=== PATIENT | female | born 1935 | race Two or more races ===

== ENCOUNTER 2021-02-23 11:07 | Emergency (ER) | payer OTHER ==
[~2021-02-23] VITALS: Ht 165.1 cm; Wt 75.3 kg
[2021-02-23] MEDS ORDERED: ALDACTONE25 MG (11:48)
[2021-02-23] MEDS ORDERED: ZYLOPRIM100 M1 (11:48)
[2021-02-23] MEDS ORDERED: CHILDREN'S ASPI81 MG (11:49)
[2021-02-23] MEDS ORDERED: ZESTRIL40 M1 (11:49)
[2021-02-23] MEDS ORDERED: AZOR 10-20 MG1 EACH (11:49)
[2021-02-23] MEDS ORDERED: ATORVASTATIN CA40 MG (11:50)
[2021-02-23] MEDS ORDERED: CILOSTAZOL100 MG (11:50)
[2021-02-23] MEDS ORDERED: CHLORTHALIDONE25 MG (11:50)
[2021-02-23] MEDS ORDERED: CALTRATE 600+D1 EACH (11:51)
[2021-02-23] MEDS ORDERED: RELAFEN DS1000 MG (11:51)
[2021-02-23] MEDS ORDERED: NEURONTIN300 MG (11:51)
[2021-02-23] MEDS ORDERED: ORPHENADRINE C100 MG PO (15:58)
[2021-02-23] MEDS ORDERED: DICLOFENAC POTA50 MG PO (15:58)
[2021-02-23] MEDS ORDERED: CYCLOBENZAPRINE10 MG PO (15:58)
== END 2021-02-23 16:15 | disposition home or self-care (01) ==
LOC: ER 11:07
DX: S00.83XA Contusion of other part of head, initial encounter (principal); S40.022A Contusion of left upper arm, initial encounter; S60.212A Contusion of left wrist, initial encounter; W18.39XA Other fall on same level, initial encounter; Y93.89 Activity, other specified; Y92.098 Other place in other non-institutional residence as the place of occurrence of the external cause; Y99.8 Other external cause status

== ENCOUNTER 2021-08-11 10:35 | Outpatient (CLI) | payer OTHER ==
[~2021-08-11 10:35] MED LIST: ALDACTONE25 MG; ATORVASTATIN CA40 MG; AZOR 10-20 MG1 EACH; CALTRATE 600+D1 EACH; CHILDREN'S ASPI81 MG; CHLORTHALIDONE25 MG; CILOSTAZOL100 MG; CYCLOBENZAPRINE10 MG PO; DICLOFENAC POTA50 MG PO; NEURONTIN300 MG; ORPHENADRINE C100 MG PO; RELAFEN DS1000 MG; ZESTRIL40 M1; ZYLOPRIM100 M1
== END 2021-08-11 10:41 | disposition home or self-care (01) ==
LOC: PPH VACUNA 10:35
PROVIDERS: ATTEND Emergency Medicine Pediatric Emergency Medicine
DX: Z23 Encounter for immunization (principal)

== ENCOUNTER 2022-05-25 11:35 | Outpatient (CLI) | payer OTHER | END 2022-05-25 11:50 | disposition home or self-care (01) | LOC: PPH VACUNA 11:35 | PROVIDERS: ATTEND Emergency Medicine Pediatric Emergency Medicine | DX: Z23 Encounter for immunization (principal) ==